=== PATIENT | female | born 1940 | race Caucasian/White ===

== ENCOUNTER 2021-10-30 21:43 | Observation (INO) | payer BC, MEDICARE, OTHER ==
[2021-10-30 23:25] LABS: #Eosinphils 0.4 thou/uL (0.0-0.7); #Lymphocytes 1.1 thou/uL (1.20-3.40); #Monocytes 0.6 thou/uL (0.11-0.59); #Neutrophils 4.1 thou/uL (1.40-6.50); %Basophils 0.5 % (0.0-1.0); %Eosinophils 6.9 % (0.0-10.0); %Lymphocytes 17.7 % (21.0-51.0); %Monocytes 9.6 % (0.0-10.0); %Neutrophils 65.3 % (42.0-75.0); Hemoglobin 13.2 g/dL (12.0-16.0); Mean Corpuscular HGB CONC 30.5 g/dL (32.0-36.0); Mean Corpuscular Hemoglobin 30.1 pg (27.0-31.0); Mean Corpuscular Volume 98.8 fL (78.0-98.0); Mean Platelet Volume 7.9 fL (7.4-10.4); Platelet Count 387 thou/uL (130-400); Red Blood Cell (RBC) Count 4.39 mill/uL (4.20-5.40); White Blood Cell (WBC) Count 6.2 thou/uL (4.8-10.8)
[2021-10-30 23:44] LABS: ALT (SGPT) 27 U/L (8-55); AST (SGOT) 31 U/L (5-34); Albumin 3.1 g/dL (3.4-4.8); Alkaline Phosphatase 233 U/L (40-110); Anion Gap 16 mmol/L (10-20); BUN (Urea Nitrogen) 13 mg/dL (9.8-20.1); Bilirubin, Total 0.9 mg/dL (0.2-1.2); Calc. Creatinine Clearance 0 mL/min (70-130); Calcium 8.8 mg/dL (7.8-10.44); Carbon Dioxide 24 mmol/L (23-31); Chloride 100 mmol/L (98-107); Globulin 2.8 g/dL (2.4-3.5); Glucose 132 mg/dL (83-110); Magnesium 1.7 mg/dL (1.6-2.6); Potassium 3.5 mmol/L (3.5-5.1); Protein, Total 5.9 g/dL (5.8-8.1); Sodium 136 mmol/L (136-145)
[2021-10-31 03:16] VITALS: BMI 23.6
[2021-10-31] MEDS ORDERED: Ondansetron PF 4 MG/2 ML Vial IVP PRN (08:34)
[2021-10-31] MEDS ORDERED: Acetaminophen 325 MG TAB PO PRN (08:34)
[2021-10-31] MEDS ORDERED: Metoprolol Tartrate 25 MG TAB PO SCH (09:00)
[2021-10-31] MEDS: Clopidogrel Bisulfate 75 MG TAB PO SCH (09:10)
[2021-10-31] MEDS: Furosemide 40 MG TAB PO SCH (09:10)
[2021-10-31] MEDS: Apixaban 5 MG TAB PO SCH ×2 (09:10→20:53)
[2021-10-31] MEDS: Amiodarone 200 MG TAB PO SCH ×2 (09:10→20:54)
[2021-10-31 12:03] LABS: SARS-CoV-2 PCR by NAA Not Detected (NotDetected)
[2021-10-31] MEDS: Atorvastatin Calcium 40 MG TAB PO SCH (20:53)
[2021-10-31] MEDS: Donepezil HCl 5 MG TAB PO SCH (20:53)
[2021-11-01 06:19] LABS: #Basophils 0.1 thou/uL (0.0-0.2); #Eosinphils 0.5 thou/uL (0.0-0.7); #Lymphocytes 1.2 thou/uL (1.20-3.40); #Monocytes 0.5 thou/uL (0.11-0.59); #Neutrophils 2.2 thou/uL (1.40-6.50); %Basophils 1.5 % (0.0-1.0); %Eosinophils 11.5 % (0.0-10.0); %Lymphocytes 26.5 % (21.0-51.0); %Monocytes 10.3 % (0.0-10.0); %Neutrophils 50.2 % (42.0-75.0); Hemoglobin 12.2 g/dL (12.0-16.0); Mean Corpuscular HGB CONC 30.8 g/dL (32.0-36.0); Mean Corpuscular Hemoglobin 30.4 pg (27.0-31.0); Mean Corpuscular Volume 98.6 fL (78.0-98.0); Mean Platelet Volume 7.8 fL (7.4-10.4); Platelet Count 316 thou/uL (130-400); RBC Distribution Width 14.8 % (11.5-14.5); Red Blood Cell (RBC) Count 4.02 mill/uL (4.20-5.40); White Blood Cell (WBC) Count 4.5 thou/uL (4.8-10.8)
[2021-11-01 06:45] LABS: Anion Gap 12 mmol/L (10-20); BUN (Urea Nitrogen) 12 mg/dL (9.8-20.1); Calc. Creatinine Clearance 70 mL/min (70-130); Calcium 8.3 mg/dL (7.8-10.44); Carbon Dioxide 26 mmol/L (23-31); Chloride 102 mmol/L (98-107); Glucose 113 mg/dL (83-110); Potassium 3.6 mmol/L (3.5-5.1); Sodium 136 mmol/L (136-145)
[2021-11-01] MEDS: Clopidogrel Bisulfate 75 MG TAB PO SCH (08:42)
[2021-11-01] MEDS: Apixaban 5 MG TAB PO SCH ×2 (08:42→21:04)
[2021-11-01] MEDS: Furosemide 40 MG TAB PO SCH (10:41)
[2021-11-01] MEDS: Amiodarone 200 MG TAB PO SCH ×2 (10:41→21:04)
[2021-11-01] MEDS: Atorvastatin Calcium 40 MG TAB PO SCH (21:04)
[2021-11-01] MEDS: Donepezil HCl 5 MG TAB PO SCH (21:04)
[2021-11-02] MEDS: Apixaban 5 MG TAB PO SCH (08:36)
[2021-11-02] MEDS: Furosemide 40 MG TAB PO SCH (08:36)
[2021-11-02] MEDS: Clopidogrel Bisulfate 75 MG TAB PO SCH (08:36)
[2021-11-02] MEDS: Amiodarone 200 MG TAB PO SCH (08:39)
[2021-11-02 13:03] VITALS: BP 97/55; TEMP 97.9
== END 2021-11-02 13:00 ==
LOC: ERS 21:43 → T4-A 10-31 00:41
PROVIDERS: ADMIT Student in an Organized Health Care Education/Training Program; ATTEND Emergency Medicine
DX: F03.91 Unspecified dementia, unspecified severity, with behavioral disturbance (principal); F05 Delirium due to known physiological condition; I11.0 Hypertensive heart disease with heart failure; I50.20 Unspecified systolic (congestive) heart failure; I25.10 Atherosclerotic heart disease of native coronary artery without angina pectoris; I48.91 Unspecified atrial fibrillation; Z79.01 Long term (current) use of anticoagulants; Z79.02 Long term (current) use of antithrombotics/antiplatelets; Z79.899 Other long term (current) drug therapy; Z95.5 Presence of coronary angioplasty implant and graft; Z20.822 Contact with and (suspected) exposure to COVID-19
CPT/HCPCS: 70450; 80048; 80053; 83735; 83880; 85025 ×2; 93005; 97116; 97139 ×6; 99285; U0003; U0005; 36415; G0378

== ENCOUNTER 2021-12-11 07:49 | Inpatient (IN) | payer OTHER, MEDICARE, BC ==
[2021-12-11 09:28] LABS: #Basophils 0.1 thou/uL (0.0-0.2); #Lymphocytes 1.1 thou/uL (1.20-3.40); #Monocytes 0.5 thou/uL (0.11-0.59); #Neutrophils 4.1 thou/uL (1.40-6.50); %Basophils 0.9 % (0.0-1.0); %Eosinophils 0.6 % (0.0-10.0); %Lymphocytes 18.6 % (21.0-51.0); %Monocytes 8.3 % (0.0-10.0); %Neutrophils 71.5 % (42.0-75.0); Hemoglobin 13.9 g/dL (12.0-16.0); Mean Corpuscular HGB CONC 31.7 g/dL (32.0-36.0); Mean Corpuscular Hemoglobin 32.1 pg (27.0-31.0); Mean Platelet Volume 10.1 fL (7.4-10.4); Platelet Count 184 thou/uL (130-400); RBC Distribution Width 16.6 % (11.5-14.5); Red Blood Cell (RBC) Count 4.34 mill/uL (4.20-5.40); White Blood Cell (WBC) Count 5.8 thou/uL (4.8-10.8)
[2021-12-11 09:39] LABS: ALT (SGPT) 52 U/L (8-55); AST (SGOT) 59 U/L (5-34); Albumin 3.1 g/dL (3.4-4.8); Alkaline Phosphatase 183 U/L (40-110); Anion Gap 19 mmol/L (10-20); BUN (Urea Nitrogen) 55 mg/dL (9.8-20.1); Bilirubin, Total 1.7 mg/dL (0.2-1.2); Calc. Creatinine Clearance 0 mL/min (70-130); Calcium 9.3 mg/dL (7.8-10.44); Carbon Dioxide 25 mmol/L (23-31); Chloride 93 mmol/L (98-107); Globulin 2.7 g/dL (2.4-3.5); Glucose 119 mg/dL (83-110); Potassium 4.8 mmol/L (3.5-5.1); Protein, Total 5.8 g/dL (5.8-8.1); Sodium 132 mmol/L (136-145)
[2021-12-11 09:48] LABS: MDiff Complete? YES; Platelet Morphology Comment Appears Adequate; Polychromasia SLIGHT = 2-3 cells (100X) (0-2/hpf)
[2021-12-11] MEDS ORDERED: HYDROcodone/Acetaminophen 7.5/325 mg Tablet ONE (09:52)
[2021-12-11] MEDS ORDERED: Xylocaine 1% w/ Epi 1:100K 10 ML VIAL ONE (10:35)
[2021-12-11] MEDS ORDERED: Fentanyl 100 MCG/2 ML VIAL ONE (10:50)
[2021-12-11] MEDS ORDERED: Acetaminophen 650 MG Suppository PR PRN (14:03)
[2021-12-11] MEDS ORDERED: Polyethylene Glycol 3350 17 GM Packet PO PRN (14:06)
[2021-12-11] MEDS: Sodium Chloride 0.9% 1,000 ML IV SCH (15:32)
[2021-12-11 17:18] VITALS: BMI 29.0
[2021-12-11] MEDS: Metoprolol Tartrate 25 MG TAB PO SCH (20:47)
[2021-12-11] MEDS: Amiodarone 200 MG TAB PO SCH (20:47)
[2021-12-12 00:50] LABS: SARS-CoV-2 PCR by NAA Not Detected (NotDetected)
[2021-12-12] MEDS: Sodium Chloride 0.9% 1,000 ML IV SCH ×2 (04:06→17:24)
[2021-12-12 04:17] LABS: Hemoglobin 11.7 g/dL (12.0-16.0); Mean Corpuscular HGB CONC 31.7 g/dL (32.0-36.0); Mean Corpuscular Hemoglobin 32.1 pg (27.0-31.0); Mean Platelet Volume 9.9 fL (7.4-10.4); Platelet Count 192 thou/uL (130-400); RBC Distribution Width 16.3 % (11.5-14.5); Red Blood Cell (RBC) Count 3.63 mill/uL (4.20-5.40); White Blood Cell (WBC) Count 4.9 thou/uL (4.8-10.8)
[2021-12-12 04:40] LABS: ALT (SGPT) 41 U/L (8-55); AST (SGOT) 43 U/L (5-34); Albumin 2.6 g/dL (3.4-4.8); Alkaline Phosphatase 161 U/L (40-110); Anion Gap 14 mmol/L (10-20); BUN (Urea Nitrogen) 48 mg/dL (9.8-20.1); Bilirubin, Total 1.2 mg/dL (0.2-1.2); Calc. Creatinine Clearance 31 mL/min (70-130); Calcium 8.4 mg/dL (7.8-10.44); Carbon Dioxide 26 mmol/L (23-31); Chloride 97 mmol/L (98-107); Globulin 2.2 g/dL (2.4-3.5); Glucose 163 mg/dL (83-110); Potassium 3.9 mmol/L (3.5-5.1); Protein, Total 4.8 g/dL (5.8-8.1); Sodium 133 mmol/L (136-145)
[2021-12-12 04:49] LABS: #Eosinphils 0.1 thou/uL (0.0-0.7); #Lymphocytes 0.9 thou/uL (1.20-3.40); #Monocytes 0.3 thou/uL (0.11-0.59); #Neutrophils 3.6 thou/uL (1.40-6.50); %Basophils 0.4 % (0.0-1.0); %Eosinophils 2.6 % (0.0-10.0); %Lymphocytes 17.7 % (21.0-51.0); %Monocytes 5.7 % (0.0-10.0); %Neutrophils 73.5 % (42.0-75.0); Large Platelets SLIGHT; MDiff Complete? YES; Platelet Morphology Comment Appears Adequate
[2021-12-12] MEDS ORDERED: Nitroglycerin 0.4 MG TAB (25 Tab Bottle) SL PRN (07:44)
[2021-12-12] MEDS ORDERED: Polyvinyl Alcohol 1.4%/Povidone 0.6% Opth Drops EA EYE PRN ×2 (07:44→07:55)
[2021-12-12] MEDS: Fish Oil 1,000 MG CAP PO SCH (08:43)
[2021-12-12] MEDS: Ferrous Sulfate 325 MG TAB PO SCH (08:43)
[2021-12-12] MEDS: Atorvastatin Calcium 40 MG TAB PO SCH (08:44)
[2021-12-12] MEDS: Senokot 8.6 MG TAB PO SCH (08:44)
[2021-12-12] MEDS: Clopidogrel Bisulfate 75 MG TAB PO SCH (08:45)
[2021-12-12] MEDS: Multivitamin W/ Minerals 1 TAB PO SCH (08:45)
[2021-12-12] MEDS: Famotidine 20 MG TAB PO SCH (08:45)
[2021-12-12] MEDS: Acetaminophen 325 MG TAB PO PRN (08:45)
[2021-12-12] MEDS: Stress 600 With Zinc 1 TAB PO SCH (08:47)
[2021-12-12] MEDS: Amiodarone 200 MG TAB PO SCH ×2 (08:47→20:54)
[2021-12-12] MEDS: Metoprolol Tartrate 25 MG TAB PO SCH (08:47)
[2021-12-12] MEDS ORDERED: SENNOSIDES 8.6 MG PO SCH (09:00)
[2021-12-12] MEDS ORDERED: Non-Formulary Item 1 EACH (Ferrous Sulfate [Ferosul] 325 MG Tablet) PO SCH (09:00)
[2021-12-12] MEDS ORDERED: Apixaban 5 MG TAB PO SCH (09:00)
[2021-12-12 17:46] LABS: Bacteria/HPF None Seen HPF (None Seen); Bilirubin Negative (Negative); Blood, Urine Negative (Negative); Clarity Clear (Clear); Glucose, Urine (Dipstick) Normal (Negative); Ketone, Urine Negative (Negative); Leukocyte Negative Leu/uL (Negative); Nitrite Negative (Negative); Protein, Urine (Dipstick) Negative (Neg-Trace); RBC/HPF 0-3 HPF (0-3); Specific Gravity, Urine 1.017 (1.002-1.036); Squamous Epithelial 0-3 HPF (0-3); WBC/HPF 0-3 HPF (0-3)
[2021-12-12 17:48] LABS: Urine Culture Reflex No No
[2021-12-12] MEDS: Albumin 25% 25 GM/100 ML BOT IVPB SCH (18:19)
[2021-12-12 18:30] LABS: Creatinine, Urine 59.22 mg/dL (47-110)
[2021-12-12] MEDS: Apixaban 5 MG TAB PO SCH (20:55)
[2021-12-12] MEDS ORDERED: THEANINE PO SCH (21:00)
[2021-12-12] MEDS ORDERED: RAMELTEON 8 MG PO SCH (21:00)
[2021-12-12] MEDS ORDERED: Non-Formulary Item 1 EACH (Ramelteon [Ramelteon] 8 MG Tablet) PO SCH (21:00)
[2021-12-13] MEDS: Albumin 25% 25 GM/100 ML BOT IVPB SCH ×3 (00:27→17:41)
[2021-12-13 04:39] LABS: #Eosinphils 0.3 thou/uL (0.0-0.7); #Monocytes 0.4 thou/uL (0.11-0.59); #Neutrophils 2.9 thou/uL (1.40-6.50); %Basophils 0.8 % (0.0-1.0); %Lymphocytes 22.1 % (21.0-51.0); %Monocytes 7.8 % (0.0-10.0); %Neutrophils 63.3 % (42.0-75.0); Hemoglobin 10.6 g/dL (12.0-16.0); Mean Corpuscular HGB CONC 30.7 g/dL (32.0-36.0); Mean Corpuscular Hemoglobin 31.9 pg (27.0-31.0); Mean Platelet Volume 9.9 fL (7.4-10.4); Platelet Count 145 thou/uL (130-400); RBC Distribution Width 16.9 % (11.5-14.5); Red Blood Cell (RBC) Count 3.31 mill/uL (4.20-5.40); White Blood Cell (WBC) Count 4.5 thou/uL (4.8-10.8)
[2021-12-13 04:57] LABS: ALT (SGPT) 31 U/L (8-55); AST (SGOT) 39 U/L (5-34); Albumin 3.2 g/dL (3.4-4.8); Alkaline Phosphatase 125 U/L (40-110); Anion Gap 15 mmol/L (10-20); BUN (Urea Nitrogen) 35 mg/dL (9.8-20.1); Bilirubin, Total 0.9 mg/dL (0.2-1.2); Calc. Creatinine Clearance 46 mL/min (70-130); Calcium 8.4 mg/dL (7.8-10.44); Carbon Dioxide 21 mmol/L (23-31); Chloride 101 mmol/L (98-107); Globulin 2.1 g/dL (2.4-3.5); Glucose 159 mg/dL (83-110); Potassium 4.1 mmol/L (3.5-5.1); Protein, Total 5.3 g/dL (5.8-8.1); Sodium 133 mmol/L (136-145)
[2021-12-13] MEDS: Sodium Chloride 0.9% 1,000 ML IV SCH (06:40)
[2021-12-13] MEDS ORDERED: Sodium Chloride 0.9% 1,000 ML IV SCH (09:21)
[2021-12-13] MEDS ORDERED: diphenhydrAMINE 25 MG CAP PO PRN (09:29)
[2021-12-13] MEDS: Senokot 8.6 MG TAB PO SCH (09:43)
[2021-12-13] MEDS: Atorvastatin Calcium 40 MG TAB PO SCH (09:44)
[2021-12-13] MEDS: Ferrous Sulfate 325 MG TAB PO SCH (09:45)
[2021-12-13] MEDS: Multivitamin W/ Minerals 1 TAB PO SCH (09:45)
[2021-12-13] MEDS: Apixaban 5 MG TAB PO SCH ×2 (09:46→21:25)
[2021-12-13] MEDS: Amiodarone 200 MG TAB PO SCH ×2 (09:48→21:25)
[2021-12-13] MEDS: Famotidine 20 MG TAB PO SCH (09:49)
[2021-12-13] MEDS: Clopidogrel Bisulfate 75 MG TAB PO SCH (09:50)
[2021-12-13] MEDS: Stress 600 With Zinc 1 TAB PO SCH (09:51)
[2021-12-13] MEDS: Fish Oil 1,000 MG CAP PO SCH (10:10)
[2021-12-13] MEDS: diphenhydrAMINE 25 MG CAP PO PRN ×2 (16:07→21:25)
[2021-12-14 04:12] LABS: #Basophils 0.1 thou/uL (0.0-0.2); #Eosinphils 0.4 thou/uL (0.0-0.7); #Lymphocytes 1.3 thou/uL (1.20-3.40); #Monocytes 0.4 thou/uL (0.11-0.59); #Neutrophils 3.3 thou/uL (1.40-6.50); %Basophils 1.5 % (0.0-1.0); %Lymphocytes 23.1 % (21.0-51.0); %Monocytes 8.1 % (0.0-10.0); %Neutrophils 60.4 % (42.0-75.0); Hemoglobin 10.6 g/dL (12.0-16.0); Mean Corpuscular HGB CONC 30.4 g/dL (32.0-36.0); Mean Corpuscular Hemoglobin 32.4 pg (27.0-31.0); Mean Platelet Volume 9.6 fL (7.4-10.4); Platelet Count 152 thou/uL (130-400); RBC Distribution Width 16.9 % (11.5-14.5); Red Blood Cell (RBC) Count 3.28 mill/uL (4.20-5.40); White Blood Cell (WBC) Count 5.4 thou/uL (4.8-10.8)
[2021-12-14 04:32] LABS: ALT (SGPT) 28 U/L (8-55); AST (SGOT) 29 U/L (5-34); Albumin 3.4 g/dL (3.4-4.8); Alkaline Phosphatase 121 U/L (40-110); Anion Gap 11 mmol/L (10-20); BUN (Urea Nitrogen) 29 mg/dL (9.8-20.1); Calc. Creatinine Clearance 60 mL/min (70-130); Calcium 8.7 mg/dL (7.8-10.44); Carbon Dioxide 25 mmol/L (23-31); Chloride 102 mmol/L (98-107); Globulin 1.8 g/dL (2.4-3.5); Glucose 131 mg/dL (83-110); Potassium 3.8 mmol/L (3.5-5.1); Protein, Total 5.2 g/dL (5.8-8.1); Sodium 134 mmol/L (136-145)
[2021-12-14] MEDS: Fish Oil 1,000 MG CAP PO SCH (09:13)
[2021-12-14] MEDS: Multivitamin W/ Minerals 1 TAB PO SCH (09:13)
[2021-12-14] MEDS: Ferrous Sulfate 325 MG TAB PO SCH (09:14)
[2021-12-14] MEDS: Clopidogrel Bisulfate 75 MG TAB PO SCH (09:14)
[2021-12-14] MEDS: Apixaban 5 MG TAB PO SCH ×2 (09:14→20:17)
[2021-12-14] MEDS: Amiodarone 200 MG TAB PO SCH ×2 (09:14→20:16)
[2021-12-14] MEDS: Senokot 8.6 MG TAB PO SCH (09:14)
[2021-12-14] MEDS: Famotidine 20 MG TAB PO SCH (09:14)
[2021-12-14] MEDS: Atorvastatin Calcium 40 MG TAB PO SCH (09:14)
[2021-12-14] MEDS: Stress 600 With Zinc 1 TAB PO SCH (09:15)
[2021-12-14] MEDS: Spironolactone 100 MG TAB PO SCH (09:18)
[2021-12-14] MEDS: THEANINE PO SCH ×2 (18:49→19:32)
[2021-12-14] MEDS: Acetaminophen 325 MG TAB PO PRN (21:18)
[2021-12-15] MEDS: diphenhydrAMINE 25 MG CAP PO PRN ×2 (00:44→21:37)
[2021-12-15 07:55] LABS: Hemoglobin 11.3 g/dL (12.0-16.0); Mean Corpuscular HGB CONC 30.9 g/dL (32.0-36.0); Mean Corpuscular Hemoglobin 31.8 pg (27.0-31.0); RBC Distribution Width 17.3 % (11.5-14.5); Red Blood Cell (RBC) Count 3.55 mill/uL (4.20-5.40)
[2021-12-15 08:04] LABS: ALT (SGPT) 32 U/L (8-55); AST (SGOT) 31 U/L (5-34); Albumin 3.4 g/dL (3.4-4.8); Alkaline Phosphatase 130 U/L (40-110); Anion Gap 15 mmol/L (10-20); BUN (Urea Nitrogen) 23 mg/dL (9.8-20.1); Bilirubin, Total 1.9 mg/dL (0.2-1.2); Calc. Creatinine Clearance 63 mL/min (70-130); Calcium 8.6 mg/dL (7.8-10.44); Carbon Dioxide 22 mmol/L (23-31); Chloride 101 mmol/L (98-107); Globulin 2.2 g/dL (2.4-3.5); Glucose 150 mg/dL (83-110); Potassium 3.8 mmol/L (3.5-5.1); Protein, Total 5.6 g/dL (5.8-8.1); Sodium 134 mmol/L (136-145)
[2021-12-15 08:13] LABS: #Lymphocytes 0.8 thou/uL (1.20-3.40); #Monocytes 0.4 thou/uL (0.11-0.59); #Neutrophils 4.8 thou/uL (1.40-6.50); %Basophils 0.4 % (0.0-1.0); %Eosinophils 0.7 % (0.0-10.0); %Lymphocytes 13.5 % (21.0-51.0); %Monocytes 6.2 % (0.0-10.0); %Neutrophils 79.3 % (42.0-75.0); Anisocytosis SLIGHT = 6-15 cells (100X) (0-5/hpf); Hypochromia SLIGHT = 6-15 cells (100X) (0-5/hpf); Large Platelets SLIGHT; MDiff Complete? YES; Mean Platelet Volume 10.2 fL (7.4-10.4); Platelet Count 150 thou/uL (130-400); Platelet Morphology Comment Appears Adequate; Polychromasia SLIGHT = 2-3 cells (100X) (0-2/hpf)
[2021-12-15] MEDS: Apixaban 5 MG TAB PO SCH ×2 (10:28→21:34)
[2021-12-15] MEDS: Amiodarone 200 MG TAB PO SCH ×2 (10:28→21:34)
[2021-12-15] MEDS: Spironolactone 100 MG TAB PO SCH (10:28)
[2021-12-15] MEDS: Fish Oil 1,000 MG CAP PO SCH (10:29)
[2021-12-15] MEDS: Famotidine 20 MG TAB PO SCH (10:29)
[2021-12-15] MEDS: Atorvastatin Calcium 40 MG TAB PO SCH (10:29)
[2021-12-15] MEDS: Clopidogrel Bisulfate 75 MG TAB PO SCH (10:29)
[2021-12-15] MEDS: Ferrous Sulfate 325 MG TAB PO SCH (10:29)
[2021-12-15] MEDS: Multivitamin W/ Minerals 1 TAB PO SCH (10:29)
[2021-12-15] MEDS: Stress 600 With Zinc 1 TAB PO SCH (10:30)
[2021-12-15] MEDS: Senokot 8.6 MG TAB PO SCH (10:30)
[2021-12-15] MEDS ORDERED: Torsemide 10 MG TAB PO SCH (14:15)
[2021-12-15] MEDS: Albumin 25% 25 GM/100 ML BOT IVPB SCH ×2 (16:05→23:34)
[2021-12-16 05:27] LABS: #Monocytes 0.4 thou/uL (0.11-0.59); #Neutrophils 4.1 thou/uL (1.40-6.50); %Basophils 0.7 % (0.0-1.0); %Eosinophils 0.8 % (0.0-10.0); %Lymphocytes 18.5 % (21.0-51.0); %Monocytes 7.4 % (0.0-10.0); %Neutrophils 72.6 % (42.0-75.0); Hemoglobin 11.2 g/dL (12.0-16.0); Mean Corpuscular HGB CONC 31.2 g/dL (32.0-36.0); Mean Corpuscular Hemoglobin 32.4 pg (27.0-31.0); Mean Platelet Volume 10.2 fL (7.4-10.4); Platelet Count 149 thou/uL (130-400); RBC Distribution Width 17.1 % (11.5-14.5); Red Blood Cell (RBC) Count 3.46 mill/uL (4.20-5.40); White Blood Cell (WBC) Count 5.6 thou/uL (4.8-10.8)
[2021-12-16 08:15] LABS: ALT (SGPT) 30 U/L (8-55); AST (SGOT) 32 U/L (5-34); Albumin 3.7 g/dL (3.4-4.8); Alkaline Phosphatase 134 U/L (40-110); Anion Gap 19 mmol/L (10-20); BUN (Urea Nitrogen) 27 mg/dL (9.8-20.1); Bilirubin, Total 2.8 mg/dL (0.2-1.2); Calc. Creatinine Clearance 59 mL/min (70-130); Calcium 8.9 mg/dL (7.8-10.44); Carbon Dioxide 20 mmol/L (23-31); Chloride 101 mmol/L (98-107); Glucose 110 mg/dL (83-110); Potassium 4.1 mmol/L (3.5-5.1); Protein, Total 5.7 g/dL (5.8-8.1); Sodium 136 mmol/L (136-145)
[2021-12-16] MEDS: Stress 600 With Zinc 1 TAB PO SCH (09:14)
[2021-12-16] MEDS: Apixaban 5 MG TAB PO SCH ×2 (09:14→21:24)
[2021-12-16] MEDS: Fish Oil 1,000 MG CAP PO SCH (09:14)
[2021-12-16] MEDS: Clopidogrel Bisulfate 75 MG TAB PO SCH (09:14)
[2021-12-16] MEDS: Amiodarone 200 MG TAB PO SCH ×2 (09:14→21:25)
[2021-12-16] MEDS: Famotidine 20 MG TAB PO SCH (09:15)
[2021-12-16] MEDS: Multivitamin W/ Minerals 1 TAB PO SCH (09:15)
[2021-12-16] MEDS: Senokot 8.6 MG TAB PO SCH (09:15)
[2021-12-16] MEDS: diphenhydrAMINE 25 MG CAP PO PRN ×2 (09:15→17:41)
[2021-12-16] MEDS: Atorvastatin Calcium 40 MG TAB PO SCH (09:15)
[2021-12-16] MEDS: Ferrous Sulfate 325 MG TAB PO SCH (09:15)
[2021-12-16] MEDS: Spironolactone 100 MG TAB PO SCH (09:16)
[2021-12-16] MEDS ORDERED: Ondansetron PF 4 MG/2 ML Vial IVP PRN (11:43)
[2021-12-16] MEDS ORDERED: Melatonin 3 MG TAB PO PRN (17:44)
[2021-12-16] MEDS ORDERED: Furosemide 20 MG/2 ML VIAL SLOW IVP SCH (17:45)
[2021-12-16] MEDS: Sodium Bicarbonate Tab 325 MG TAB PO SCH (21:25)
[2021-12-17 05:17] LABS: Anion Gap 18 mmol/L (10-20); BUN (Urea Nitrogen) 28 mg/dL (9.8-20.1); Calc. Creatinine Clearance 49 mL/min (70-130); Calcium 8.7 mg/dL (7.8-10.44); Carbon Dioxide 18 mmol/L (23-31); Chloride 103 mmol/L (98-107); Glucose 96 mg/dL (83-110); Potassium 4.6 mmol/L (3.5-5.1); Sodium 134 mmol/L (136-145)
[2021-12-17 05:30] LABS: #Eosinphils 0.2 thou/uL (0.0-0.7); #Lymphocytes 1.1 thou/uL (1.20-3.40); #Monocytes 0.4 thou/uL (0.11-0.59); #Neutrophils 4.2 thou/uL (1.40-6.50); %Basophils 0.4 % (0.0-1.0); %Eosinophils 2.7 % (0.0-10.0); %Lymphocytes 19.4 % (21.0-51.0); %Monocytes 6.5 % (0.0-10.0); Anisocytosis MODERATE=16-30 cells (100X) (0-5/hpf); Burr Cells SLIGHT = 2-5 cells (100X) (0-1/hpf); Hemoglobin 11.2 g/dL (12.0-16.0); MDiff Complete? YES; Macrocytosis MODERATE=16-30 cells (100X) (0-5/hpf); Mean Corpuscular Hemoglobin 32.4 pg (27.0-31.0); Mean Platelet Volume 10.1 fL (7.4-10.4); Platelet Count 159 thou/uL (130-400); Platelet Morphology Comment Appears Adequate; RBC Distribution Width 16.8 % (11.5-14.5); Red Blood Cell (RBC) Count 3.46 mill/uL (4.20-5.40); White Blood Cell (WBC) Count 5.9 thou/uL (4.8-10.8)
[2021-12-17] MEDS: diphenhydrAMINE 25 MG CAP PO PRN ×4 (06:36→20:51)
[2021-12-17] MEDS ORDERED: Furosemide 20 MG TAB PO SCH (09:45)
[2021-12-17] MEDS ORDERED: Furosemide 10 MG/ML Oral Soln PO SCH (09:45)
[2021-12-17] MEDS ORDERED: Spironolactone 100 MG TAB PO SCH (09:45)
[2021-12-17] MEDS: Fish Oil 1,000 MG CAP PO SCH (10:23)
[2021-12-17] MEDS: Amiodarone 200 MG TAB PO SCH ×2 (10:23→20:52)
[2021-12-17] MEDS: Senokot 8.6 MG TAB PO SCH (10:23)
[2021-12-17] MEDS: Sodium Bicarbonate Tab 325 MG TAB PO SCH ×3 (10:23→20:51)
[2021-12-17] MEDS: Atorvastatin Calcium 40 MG TAB PO SCH (10:23)
[2021-12-17] MEDS: Multivitamin W/ Minerals 1 TAB PO SCH (10:24)
[2021-12-17] MEDS: Apixaban 5 MG TAB PO SCH ×2 (10:24→20:51)
[2021-12-17] MEDS: Ferrous Sulfate 325 MG TAB PO SCH (10:25)
[2021-12-17] MEDS: Famotidine 20 MG TAB PO SCH (10:25)
[2021-12-17] MEDS: Clopidogrel Bisulfate 75 MG TAB PO SCH (10:25)
[2021-12-17] MEDS: Stress 600 With Zinc 1 TAB PO SCH (10:25)
[2021-12-17] MEDS: diphenhydrAMINE 30 GM TUBE TOP PRN (20:50)
[2021-12-17] MEDS: Metoprolol Tartrate 25 MG TAB PO SCH (20:51)
[2021-12-18] MEDS: diphenhydrAMINE 25 MG CAP PO PRN ×4 (00:33→18:26)
[2021-12-18 07:51] LABS: #Eosinphils 0.2 thou/uL (0.0-0.7); #Lymphocytes 1.1 thou/uL (1.20-3.40); #Monocytes 0.7 thou/uL (0.11-0.59); #Neutrophils 4.2 thou/uL (1.40-6.50); %Basophils 0.8 % (0.0-1.0); %Eosinophils 3.2 % (0.0-10.0); %Monocytes 11.4 % (0.0-10.0); %Neutrophils 67.7 % (42.0-75.0); Mean Corpuscular HGB CONC 30.1 g/dL (32.0-36.0); Mean Corpuscular Hemoglobin 31.9 pg (27.0-31.0); Mean Platelet Volume 10.1 fL (7.4-10.4); Platelet Count 185 thou/uL (130-400); RBC Distribution Width 17.3 % (11.5-14.5); Red Blood Cell (RBC) Count 3.74 mill/uL (4.20-5.40); White Blood Cell (WBC) Count 6.2 thou/uL (4.8-10.8)
[2021-12-18 07:57] LABS: Anion Gap 15 mmol/L (10-20); BUN (Urea Nitrogen) 33 mg/dL (9.8-20.1); Calc. Creatinine Clearance 47 mL/min (70-130); Calcium 8.8 mg/dL (7.8-10.44); Carbon Dioxide 23 mmol/L (23-31); Chloride 100 mmol/L (98-107); Glucose 113 mg/dL (83-110); Sodium 133 mmol/L (136-145)
[2021-12-18] MEDS: Clopidogrel Bisulfate 75 MG TAB PO SCH (08:20)
[2021-12-18] MEDS: Apixaban 5 MG TAB PO SCH ×2 (08:20→21:36)
[2021-12-18] MEDS: Atorvastatin Calcium 40 MG TAB PO SCH (08:20)
[2021-12-18] MEDS: Fish Oil 1,000 MG CAP PO SCH (08:20)
[2021-12-18] MEDS: Sodium Bicarbonate Tab 325 MG TAB PO SCH ×2 (08:20→21:36)
[2021-12-18] MEDS: Senokot 8.6 MG TAB PO SCH (08:20)
[2021-12-18] MEDS: Famotidine 20 MG TAB PO SCH (08:20)
[2021-12-18] MEDS: Ferrous Sulfate 325 MG TAB PO SCH (08:21)
[2021-12-18] MEDS: Multivitamin W/ Minerals 1 TAB PO SCH (08:22)
[2021-12-18] MEDS: Amiodarone 200 MG TAB PO SCH ×2 (08:29→21:36)
[2021-12-18 08:56] LABS: Albumin 3.3 g/dL (3.4-4.8)
[2021-12-18 08:58] LABS: Protein, Total 5.5 g/dL (5.8-8.1)
[2021-12-18 09:01] LABS: Alkaline Phosphatase 181 U/L (40-110)
[2021-12-18 09:03] LABS: AST (SGOT) 158 U/L (5-34); Bilirubin, Direct 1.2 mg/dL (0.1-0.3)
[2021-12-18 09:04] LABS: ALT (SGPT) 110 U/L (8-55)
[2021-12-18 09:22] LABS: Platelet Morphology Comment Appears Adequate; RBC Morphology Normal
[2021-12-18] MEDS: Stress 600 With Zinc 1 TAB PO SCH (09:48)
[2021-12-18] MEDS: diphenhydrAMINE 30 GM TUBE TOP PRN (09:48)
[2021-12-18 11:38] LABS: SARS-CoV-2 PCR by NAA Not Detected (NotDetected)
[2021-12-18] MEDS: Albumin 25% 25 GM/100 ML BOT IVPB SCH ×2 (12:45→18:19)
[2021-12-19 06:23] LABS: #Basophils 0.1 thou/uL (0.0-0.2); #Eosinphils 0.1 thou/uL (0.0-0.7); #Lymphocytes 1.1 thou/uL (1.20-3.40); #Monocytes 0.7 thou/uL (0.11-0.59); #Neutrophils 3.8 thou/uL (1.40-6.50); %Basophils 0.9 % (0.0-1.0); %Eosinophils 2.6 % (0.0-10.0); %Lymphocytes 19.3 % (21.0-51.0); %Monocytes 11.4 % (0.0-10.0); %Neutrophils 65.9 % (42.0-75.0); Hemoglobin 11.9 g/dL (12.0-16.0); Mean Corpuscular HGB CONC 31.6 g/dL (32.0-36.0); Mean Corpuscular Hemoglobin 32.8 pg (27.0-31.0); Mean Platelet Volume 9.8 fL (7.4-10.4); Platelet Count 189 thou/uL (130-400); RBC Distribution Width 17.5 % (11.5-14.5); Red Blood Cell (RBC) Count 3.62 mill/uL (4.20-5.40); White Blood Cell (WBC) Count 5.8 thou/uL (4.8-10.8)
[2021-12-19 06:55] LABS: Albumin 3.4 g/dL (3.4-4.8)
[2021-12-19 06:56] LABS: Chloride 99 mmol/L (98-107); Potassium 4.6 mmol/L (3.5-5.1); Sodium 133 mmol/L (136-145)
[2021-12-19 06:57] LABS: Calcium 8.7 mg/dL (7.8-10.44); Glucose 101 mg/dL (83-110)
[2021-12-19 06:58] LABS: Globulin 2.1 g/dL (2.4-3.5); Protein, Total 5.5 g/dL (5.8-8.1)
[2021-12-19 06:59] LABS: Carbon Dioxide 24 mmol/L (23-31)
[2021-12-19 07:00] LABS: Alkaline Phosphatase 177 U/L (40-110)
[2021-12-19 07:01] LABS: Calc. Creatinine Clearance 47 mL/min (70-130)
[2021-12-19 07:02] LABS: BUN (Urea Nitrogen) 33 mg/dL (9.8-20.1)
[2021-12-19 07:03] LABS: ALT (SGPT) 198 U/L (8-55); AST (SGOT) 285 U/L (5-34)
[2021-12-19 07:04] LABS: Lipase 22 U/L (8-78)
[2021-12-19 07:14] LABS: Anion Gap 15 mmol/L (10-20)
[2021-12-19] MEDS: Stress 600 With Zinc 1 TAB PO SCH (09:00)
[2021-12-19] MEDS: Multivitamin W/ Minerals 1 TAB PO SCH (09:00)
[2021-12-19] MEDS: Apixaban 5 MG TAB PO SCH ×2 (09:00→20:29)
[2021-12-19] MEDS: Ferrous Sulfate 325 MG TAB PO SCH (09:00)
[2021-12-19] MEDS: Amiodarone 200 MG TAB PO SCH ×2 (09:00→20:28)
[2021-12-19] MEDS: Fish Oil 1,000 MG CAP PO SCH (09:01)
[2021-12-19] MEDS: Clopidogrel Bisulfate 75 MG TAB PO SCH (09:01)
[2021-12-19] MEDS: diphenhydrAMINE 25 MG CAP PO PRN ×2 (09:01→20:30)
[2021-12-19] MEDS: Senokot 8.6 MG TAB PO SCH (09:01)
[2021-12-19] MEDS: Famotidine 20 MG TAB PO SCH (09:01)
[2021-12-19] MEDS: Sodium Bicarbonate Tab 325 MG TAB PO SCH ×2 (09:01→20:30)
[2021-12-19] MEDS: Albumin 25% 25 GM/100 ML BOT IVPB SCH ×2 (09:06→17:20)
[2021-12-19 10:19] LABS: HBCM Index 0.07 S/CO (0-0.79); HBSAg Index 0.22 S/CO (0-0.99); Hep A IgM AB Non-Reactive (NonReactive); Hep A IgM S/CO 0.49 S/CO (0-0.79); Hep B Surf Ag Non-Reactive S/CO (NonReactive); Hep C IgG Ab Non-Reactive (NonReactive); Hep C Index 0.04 S/CO (0-0.79); Hepatitis B Core IgM Abs Non-Reactive (NonReactive)
[2021-12-20] MEDS: diphenhydrAMINE 25 MG CAP PO PRN (03:01)
[2021-12-20 06:24] LABS: ALT (SGPT) 194 U/L (8-55); AST (SGOT) 218 U/L (5-34); Albumin 3.6 g/dL (3.4-4.8); Alkaline Phosphatase 180 U/L (40-110); Anion Gap 14 mmol/L (10-20); BUN (Urea Nitrogen) 35 mg/dL (9.8-20.1); Bilirubin, Total 2.1 mg/dL (0.2-1.2); Calc. Creatinine Clearance 51 mL/min (70-130); Calcium 9.1 mg/dL (7.8-10.44); Carbon Dioxide 24 mmol/L (23-31); Chloride 100 mmol/L (98-107); Globulin 1.9 g/dL (2.4-3.5); Glucose 115 mg/dL (83-110); Potassium 4.4 mmol/L (3.5-5.1); Protein, Total 5.5 g/dL (5.8-8.1); Sodium 134 mmol/L (136-145)
[2021-12-20] MEDS: Fish Oil 1,000 MG CAP PO SCH (09:10)
[2021-12-20] MEDS: Sodium Bicarbonate Tab 325 MG TAB PO SCH (09:10)
[2021-12-20] MEDS: Stress 600 With Zinc 1 TAB PO SCH (09:10)
[2021-12-20] MEDS: Senokot 8.6 MG TAB PO SCH (09:11)
[2021-12-20] MEDS: Clopidogrel Bisulfate 75 MG TAB PO SCH (09:11)
[2021-12-20] MEDS: Famotidine 20 MG TAB PO SCH (09:11)
[2021-12-20] MEDS: Apixaban 5 MG TAB PO SCH (09:11)
[2021-12-20] MEDS: Multivitamin W/ Minerals 1 TAB PO SCH (09:11)
[2021-12-20] MEDS: Ferrous Sulfate 325 MG TAB PO SCH (09:11)
[2021-12-20] MEDS: Amiodarone 200 MG TAB PO SCH (09:11)
[2021-12-20] MEDS ORDERED: Albumin 25% 25 GM/100 ML BOT IVPB SCH (09:45)
[2021-12-20] MEDS: diphenhydrAMINE 30 GM TUBE TOP PRN (10:47)
[2021-12-20 16:44] VITALS: BP 115/74; TEMP 97.8
== END 2021-12-20 17:45 | DRG 683 ==
LOC: ERS 07:49 → 2NO 12:44 → T4-A 12-17 13:12
PROVIDERS: ADMIT Family Medicine; ATTEND Family Medicine
DX: N17.9 Acute kidney failure, unspecified (principal); I50.22 Chronic systolic (congestive) heart failure; I48.20 Chronic atrial fibrillation, unspecified; E87.1 Hypo-osmolality and hyponatremia; D62 Acute posthemorrhagic anemia; I13.0 Hypertensive heart and chronic kidney disease with heart failure and stage 1 through stage 4 chronic kidney disease, or unspecified chronic kidney disease; Z66 Do not resuscitate; Z20.822 Contact with and (suspected) exposure to COVID-19; S01.01XA Laceration without foreign body of scalp, initial encounter; I25.10 Atherosclerotic heart disease of native coronary artery without angina pectoris; E78.5 Hyperlipidemia, unspecified; F03.90 Unspecified dementia, unspecified severity, without behavioral disturbance, psychotic disturbance, mood disturbance, and anxiety; W18.30XA Fall on same level, unspecified, initial encounter; I25.5 Ischemic cardiomyopathy; I95.1 Orthostatic hypotension; N18.30 Chronic kidney disease, stage 3 unspecified; Z95.5 Presence of coronary angioplasty implant and graft; Z79.899 Other long term (current) drug therapy; Z79.01 Long term (current) use of anticoagulants; K74.60 Unspecified cirrhosis of liver; K76.1 Chronic passive congestion of liver; N28.89 Other specified disorders of kidney and ureter
CPT/HCPCS: 36415; 70450; 71045; 72125; 76705; 80048; 80053; 80074; 81001; 82550; 82570; 83690; 83880; 84156; 84300; 84540; 85025; 86850; 86900; 86901; 93005; 93010; 93306; 93970; 96374; J1940; J2405; J3010; J7050; P9047; U0003; U0005